=== PATIENT | male | born 1985 | race American Indian/Alaskan Native ===

== ENCOUNTER 2017-10-24 09:59 | Emergency (ER) | payer SELFPAY ==
[2017-10-24 10:09] VITALS: BP 109/81
--- NOTE | 2017-10-24 10:54 | Emergency Department Report ---
ED Rash HPI - HPI Chief Complaint: Skin Rash Stated Complaint: RASH Time Seen by Provider: 10/24/17 10:52 Duration: 3 Days Location: Chest, Back, Abdomen, Upper Extremities, Lower Extremities Rash Symptoms: Yes Itching, No Facial Swelling, No Tongue/Oral Swelling, No Breathing Difficulties, No Choking Sensation, No Wheezing/Dyspnea, No Peeling, No Blistering, No Fever, No Lightheaded, No Malaise, No Myalgias Severity: mild Other History: 32-year-old male past medical history HIV on [place] presents with complaint of 3 days of itchy rash that started on extremities and spread to trunk. Patient is describing small oval shaped lesions which can be itchy on his trunk primarily. Denies fever chills nausea vomiting dysuria or hematuria. Patient states he also came down with cold-like symptoms this week and has been having slight nonproductive cough. States his roommate has a URI. No other complaints. Patient is awake alert and oriented 3. Not in acute distress. Denies any new recent cosmetics pets soaps or foods. Denies any medication or food allergies. ED Review of Systems ROS: Stated complaint: RASH Other details as noted in HPI Constitutional: denies: chills, fever Eyes: denies: eye pain, eye discharge, vision change ENT: denies: ear pain, throat pain Respiratory: denies: cough, shortness of breath, wheezing Cardiovascular: denies: chest pain, palpitations Endocrine: no symptoms reported Gastrointestinal: denies: abdominal pain, nausea, diarrhea Genitourinary: denies: urgency, dysuria Musculoskeletal: denies: back pain, joint swelling, arthralgia Skin: as per HPI, rash, lesions, pruritus Neurological: denies: headache, weakness, paresthesias Psychiatric: denies: anxiety, depression Hematological/Lymphatic: denies: easy bleeding, easy bruising ED Past Medical Hx - Past Medical History Previous Medical History?: Yes Hx HIV: Yes - Social History Smoking Status: Never Smoker - Medications Home Medications: Home Medications Medication Instructions Recorded Confirmed Last Taken Type Hydrocortisone 1% [Hydrocortisone 1 applicatio TP TID PRN #1 tube 10/24/17 Unknown Rx 1% CREAM] Hydroxyzine HCl 25 mg PO TID PRN #30 tablet 10/24/17 Unknown Rx Rash Exam - Exam General: Vital signs noted. No distress. Alert and acting appropriately. HEENT: No Periorbital Edema, No Conjuctival Injection, No Chemosis, No Perioral Edema, No Tongue Edema, No Uvular Edema, No Compromised Airway, No Drooling Lungs: Yes Good Air Exchange (Normal Breath Sounds), No Wheezes, No Ronchi, No Stridor, No Cough, No Labored Respirations, No Retractions, No Use of Accessory Muscles, No Other Abnormal Lung Sounds Heart: Yes Regular, No Murmur Skin: Yes Maculopapular Rash ([place] patch and abdomen with small 1-2 cm salmon shaped slightly elevated HE lesions on trunk and [place] tree and diagonal pattern. No vesicles. No weeping. No cellulitis. No erythema.), No Urticarial Rash, No Morbilliform rash, No Bulla(e), No Excoriations, No Weeping , No Tenderness, No Erythema, No Edema, No Encrustations, No Other Other: Positive: Abdomen Normal, Neurologic Normal, Musculoskeletal Normal ED Course Vital Signs 10/24/17 10:05 Temperature 98.3 F Pulse Rate 71 Respiratory 18 Rate Blood Pressure 109/81 O2 Sat by Pulse 99 Oximetry ED Medical Decision Making - Medical Decision Making A/P: Pityriasis rosea 1-hydroxyzine when necessary, calamine lotion, oatmeal baths 2-patient educated on this condition 3-follow-up with dermatology Critical care attestation.: If time is entered above; I have spent that time in minutes in the direct care of this critically ill patient, excluding procedure time. ED Disposition Clinical Impression: Pityriasis in adult Disposition: DC-01 TO HOME OR SELFCARE Is pt being admited?: No Does the pt Need Aspirin: No Condition: Stable Instructions: Pityriasis rosea (ED) Prescriptions: Hydrocortisone 1% [Hydrocortisone 1% CREAM] 1 applicatio TP TID PRN #1 tube PRN Reason: Itching Hydroxyzine HCl 25 mg PO TID PRN #30 tablet PRN Reason: Itching Referrals: [facility] [Provider Group] - 3-5 Days Forms: Work/School Release Form(ED) Time of Disposition: 10:57
== END 2017-10-24 11:05 | disposition home or self-care (01) ==
LOC: ED 09:59
DX: L21.0 Seborrhea capitis (principal)
CPT/HCPCS: 99282

== ENCOUNTER → 2018-03-24 02:00 | Emergency (ER) | payer SELFPAY | END | disposition left against medical advice (07) | LOC: ED 02:00 | DX: M54.5 Low back pain (principal); Z53.21 Procedure and treatment not carried out due to patient leaving prior to being seen by health care provider ==

== ENCOUNTER 2018-10-19 09:58 | Emergency (ER) | payer OTHER ==
[2018-10-19 10:30] VITALS: BP 132/73
[2018-10-19] MEDS ORDERED: NORCO 5/325 PO ONE (11:51)
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
--- NOTE | 2018-10-19 12:52 | XRay Report ---
LEFT HAND 2 VIEWS: 10/19/18 10:29:00 CLINICAL: Trauma and pain FINDINGS: Normal bones, joints and soft tissues of the hand and wrist. No fracture or dislocation. Distal radius and ulna are normal. IMPRESSION: Normal.
== END 2018-10-19 12:14 | disposition home or self-care (01) ==
LOC: ED 09:58
DX: S63.502A Unspecified sprain of left wrist, initial encounter (principal); M54.5 Low back pain; M79.652 Pain in left thigh; S60.212A Contusion of left wrist, initial encounter; V49.49XA Driver injured in collision with other motor vehicles in traffic accident, initial encounter; Y93.89 Activity, other specified; Y92.410 Unspecified street and highway as the place of occurrence of the external cause; Y99.8 Other external cause status

== ENCOUNTER 2018-10-27 15:28 | Emergency (ER) | payer SELFPAY ==
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
== END 2018-10-27 18:43 ==
LOC: ED 15:28

== ENCOUNTER 2021-09-21 21:11 | Emergency (ER) | payer OTHER, SELFPAY ==
[2021-09-21] MEDS ORDERED: SODIUM CHLORIDE 0.9% 1000 ML IV SOLN IV ONE (22:25)
[2021-09-21] MEDS ORDERED: ACETAMINOPHEN 500 MG TAB PO ONE (22:25)
[2021-09-21] MEDS ORDERED: IBUPROFEN 600 MG TAB PO ONE (22:25)
[2021-09-21] MEDS ORDERED: ONDANSETRON 4 MG/2 ML INJ IV ONE (22:25)
[2021-09-21 23:22] LABS: Hematocrit 40.4 % (35.5-45.6); Hemoglobin 13.2 gm/dl (11.8-15.2); Mean Corpuscular HGB Conc 33 % (32-34); Mean Corpuscular Volume 91 fl (84-94); Platelet Count 188 K/mm3 (140-440); Red Blood Count 4.46 M/mm3 (3.65-5.03); Red Cell Distribution Width 12.1 % (13.2-15.2)
[2021-09-21 23:36] LABS: Bilirubin,Urine NEG (Negative); Blood,Urine NEG (Negative); Color,Urine Yellow (Yellow); RBC,Urine < 1.0 /HPF (0.0-6.0); Urobilinogen,Urine < 2.0 mg/dL (<2.0); WBC,Urine < 1.0 /HPF (0.0-6.0)
[2021-09-21] MEDS ORDERED: AZITHROMYCIN 250 MG TAB PO ONE (23:53)
[2021-09-21] MEDS ORDERED: cefTRIAXone/NS 1 GM/50 ML 1 GM/50 ML BAG IV ONE (23:54)
[2021-09-22 00:49] LABS: Alanine Aminotransferase 40 units/L (7-56); Albumin 3.8 g/dL (3.9-5); BUN/Creatinine Ratio 7; Blood Urea Nitrogen 10 mg/dL (9-20); Calcium 8.3 mg/dL (8.4-10.2); Hemolysis Index 4
[2021-09-22 01:43] LABS: Anisocytosis 1+; Band Neutrophils # (Manual) 0.1 K/mm3; Platelet Estimate Consistent w Auto; Total Cells Counted 100
[2021-09-22 02:49] VITALS: BP 109/62
--- NOTE | 2021-09-22 03:01 | Emergency Department Report ---
- General Chief Complaint: Fever Stated Complaint: FEVER Source: patient Mode of arrival: Ambulatory Limitations: No Limitations - History of Present Illness Initial Comments: Patient is a 35-year-old -I[place] male with a history of HIV who presents to the ED with complaint of acute onset persistent nasal and sinus congestion, frontal sinus pressure, headache, severe diffuse body aches and pains, dry cough, intermittent fever and chills, generalized weakness and fatigue with diarrhea for the last 2 days. Patient states that no one else at home is had similar symptoms. Patient denies abdominal pain, nausea, vomiting, dizziness, syncope, chest pain, shortness of breath, sore throat, dysuria, urinary frequency and urgency, hematemesis, low back pain, hematuria or testicular pain. MD Complaint: fever, cough, rhinorrhea, nasal congestion, sinus pain, other (Diffuse body aches and pains) -: Sudden, days(s) (2) Severity: severe Severity scale (0 -10): 7 Quality: sharp, aching Consistency: constant Improves With: nothing Worsens With: nothing Associated Symptoms: denies other symptoms, fever, chills, myalgias, diaphoresis, headache, rhinorrhea, nasal congestion, cough. denies: sore throat, stiff neck, shortness of breath, abdominal pain, nausea, vomiting, [place] rrhea, dysuria, rash, confusion, right sweats, weight loss, hoarseness, ear pain, other Treatments Prior to Arrival: Acetaminophen - Related Data Previous Rx's Medication Instructions Recorded Last Taken Type Hydrocortisone 1% [Hydrocortisone 1 applicatio TP TID PRN #1 tube 10/24/17 Unknown Rx 1% CREAM] hydrOXYzine HCL [Hydroxyzine HCl] 25 mg PO TID PRN #30 tablet 10/24/17 Unknown Rx HYDROcodone/APAP 5-325 [[place] 1 each PO Q6HR PRN #15 tablet 10/19/18 Unknown Rx 5/325] Acetaminophen [Tylenol] 500 mg PO Q6HR PRN #40 tablet 09/22/21 Unknown Rx Ascorbic Acid [Vitamin C] 1,000 mg PO DAILY #30 tab 09/22/21 Unknown Rx Benzonatate [Tessalon Perles] 100 mg PO Q8HR #30 cap 09/22/21 Unknown Rx Cetirizine HCl [Zyrtec 10mg tab] 10 mg PO DAILY #30 tab 09/22/21 Unknown Rx Doxycycline Hyclate 100 mg PO Q12H #20 cap 09/22/21 Unknown Rx Ondansetron [Zofran Odt] 4 mg PO Q8HR PRN #12 tab.rapdis 09/22/21 Unknown Rx Allergies Allergy/AdvReac Type Severity Reaction Status Date / Time No Known Allergies Allergy Unverified 10/19/18 10:00 ED Review of Systems ROS: Stated complaint: FEVER Other details as noted in HPI Constitutional: chills, fever, malaise Eyes: denies: eye pain, eye discharge, vision change ENT: congestion, other (Frontal sinus pressure). denies: ear pain, throat pain Respiratory: cough. denies: orthopnea, shortness of breath, SOB with exertion, wheezing Cardiovascular: denies: chest pain, palpitations Endocrine: no symptoms reported Gastrointestinal: denies: abdominal pain, nausea, vomiting, diarrhea Genitourinary: denies: urgency, dysuria Musculoskeletal: arthralgia, myalgia. denies: back pain, joint swelling Skin: denies: rash, lesions Neurological: headache. denies: weakness, paresthesias Psychiatric: denies: anxiety, depression Hematological/Lymphatic: denies: easy bleeding, easy bruising ED Past Medical Hx - Past Medical History Previous Medical History?: Yes Hx HIV: Yes - Surgical History Past Surgical History?: No - Social History Smoking Status: Current Every Day Smoker Substance Use Type: None - Medications Home Medications: Home Medications Medication Instructions Recorded Confirmed Last Taken Type Hydrocortisone 1% [Hydrocortisone 1 applicatio TP TID PRN #1 tube 10/24/17 Unknown Rx 1% CREAM] hydrOXYzine HCL [Hydroxyzine HCl] 25 mg PO TID PRN #30 tablet 10/24/17 Unknown Rx HYDROcodone/APAP 5-325 [[place] 1 each PO Q6HR PRN #15 tablet 10/19/18 Unknown Rx 5/325] Acetaminophen [Tylenol] 500 mg PO Q6HR PRN #40 tablet 09/22/21 Unknown Rx Ascorbic Acid [Vitamin C] 1,000 mg PO DAILY #30 tab 09/22/21 Unknown Rx Benzonatate [Tessalon Perles] 100 mg PO Q8HR #30 cap 09/22/21 Unknown Rx Cetirizine HCl [Zyrtec 10mg tab] 10 mg PO DAILY #30 tab 09/22/21 Unknown Rx Doxycycline Hyclate 100 mg PO Q12H #20 cap 09/22/21 Unknown Rx Ondansetron [Zofran Odt] 4 mg PO Q8HR PRN #12 tab.rapdis 09/22/21 Unknown Rx ED Physical Exam - General Limitations: No Limitations General appearance: alert, in no apparent distress - Head Head exam: Present: atraumatic, normocephalic, normal inspection - Eye Eye exam: Present: normal appearance, PERRL, EOMI Pupils: Present: normal accommodation - ENT ENT exam: Present: normal orophraynx, mucous membranes moist, TM's normal bilaterally, normal external ear exam, other (Grossly congested nasal passages; palpable frontal sinus tenderness) - Neck Neck exam: Present: normal inspection, full ROM. Absent: tenderness - Respiratory Respiratory exam: Present: normal lung sounds bilaterally. Absent: respiratory distress, wheezes, rales, rhonchi, stridor, chest wall tenderness, accessory muscle use, decreased breath sounds, other - Cardiovascular Cardiovascular Exam: Present: normal rhythm, tachycardia, normal heart sounds. Absent: systolic murmur, diastolic murmur, rubs, gallop - GI/Abdominal GI/Abdominal exam: Present: soft, normal bowel sounds. Absent: tenderness, guarding, rebound, hyperactive bowel sounds, hypoactive bowel sounds, organo megaly, mass - Extremities Exam Extremities exam: Present: normal inspection, full ROM, normal capillary refill - Back Exam Back exam: Present: normal inspection, full ROM. Absent: tenderness, CVA tenderness (L), muscle spasm, vertebral tenderness - Neurological Exam Neurological exam: Present: alert, oriented X3, CN II-XII intact, normal gait, reflexes normal - Psychiatric Psychiatric exam: Present: normal affect, normal mood, anxious - Skin Skin exam: Present: warm, dry, intact, normal color. Absent: rash ED Course Vital Signs 09/21/21 09/21/21 09/22/21 22:15 23:05 02:38 Temperature 102.7 F H 98.7 F Pulse Rate 140 H 90 Respiratory 22 18 16 Rate Blood Pressure 114/60 Blood Pressure 109/62 [Left] O2 Sat by Pulse 96 98 Oximetry ED Medical Decision Making - Lab Data Result diagrams: 09/21/21 22:56 09/21/21 22:56 - Radiology Data Radiology results: report reviewed, image reviewed Chest x-ray showed no acute cardiopulmonary abnormalities or pneumonitis - Medical Decision Making This is a 35-year-old -[place] male with a history of HIV who presents to the ED with complaint of acute onset persistent nasal and sinus congestion, frontal sinus pressure, headache, severe diffuse body aches and pains, dry cough, intermittent fever and chills, generalized weakness and fatigue with diarrhea for the last 2 days. Patient states that no one else at home is had similar symptoms. In the ED, patient is alert and oriented x3 and is not in distress but febrile and tachycardic in triage. Code sepsis was initiated and the patient was treated initially for fever with Tylenol and ibuprofen, also given 3 L of normal saline IV bolus x1 per sepsis protocol. Lab test results including urinalysis and rapid influenza test results were reviewed and are all nonactionable except for mild hyponatremia 134 mmol/L. Chest x-ray showed no acute cardiopulmonary abnormalities or pneumonitis. Patient was empirically treated with Rocephin 1 g IV x1 and azithromycin 500 mg p.o. x1. On reevaluation, patient's fever resolved with medication, tachycardia also resolv ed, patient's pain also resolved. Patient is hemodynamically stable. Patient was discharged home on medications and advised to follow-up with his primary care physician in 5 to 7 days for reevaluation. Patient was also encouraged to get tested for COVID-19 viral infection given his symptoms at presentation in the ED. Patient is advised return to the ED immediately if symptoms get worse. - Differential Diagnosis COVID-19; pneumonia; URI; viral gastroenteritis; sinusitis; Critical care attestation.: If time is entered above; I have spent that time in minutes in the direct care of this critically ill patient, excluding procedure time. ED Disposition Clinical Impression: Fever and chills, Acute upper respiratory infection, Suspected 2019 novel coronavirus infection, Diarrhea in adult patient Acute bronchitis Qualifiers: Bronchitis organism: other organism Qualified Code(s): J20.8 - Acute bronchitis due to other specified organisms Disposition: HOME / SELF CARE / HOMELESS Is pt being admited?: No Does the pt Need Aspirin: No Condition: Stable Instructions: Acute Bronchitis (ED), Upper Respiratory Infection, Adult, [id number], Cough, Adult, [id number], Acute Bronchitis, Adult, [id number], Diarrhea, Adult, [id number], Fever, Adult, [id number] Additional Instructions: All lab test results were reviewed and are all nonactionable. Chest x-ray sh owed no acute cardiopulmonary abnormalities or pneumonitis. Therefore get a COVID-19 diagnostic tests in any of the outpatient facilities and if positive self quarantine at home for 5 days per CDC recommendations. Otherwise take medications as advised, drink plenty of fluids and follow-up with your primary care physician in 5 to 7 days for reevaluation. Return to the ED immediately if symptoms get worse Prescriptions: Acetaminophen [Tylenol] 500 mg PO Q6HR PRN #40 tablet PRN Reason: Pain or Fever Doxycycline Hyclate 100 mg PO Q12H #20 cap Benzonatate [Tessalon Perles] 100 mg PO Q8HR #30 cap Ascorbic Acid [Vitamin C] 1,000 mg PO DAILY #30 tab Ondansetron [Zofran Odt] 4 mg PO Q8HR PRN #12 tab.rapdis PRN Reason: Nausea Cetirizine HCl [Zyrtec 10mg tab] 10 mg PO DAILY #30 tab Referrals: [facility] [Provider Group] - 7-10 days Forms: Work/School Release Form(ED) Time of Disposition: 03:05 Print Language: BAHAMIAN
--- NOTE | 2021-09-24 10:19 | XRay Report ---
CHEST 2 VIEWS INDICATION / CLINICAL INFORMATION: FEVER, COUGH, DYSPNEA. COMPARISON: None available. FINDINGS: SUPPORT DEVICES: None. HEART / MEDIASTINUM: No significant abnormality. LUNGS / PLEURA: No significant pulmonary or pleural abnormality. No pneumothorax. ADDITIONAL FINDINGS: No significant additional findings. IMPRESSION: 1. No active cardiopulmonary disease. Signer Name: Vikas Ribera II, MD Signed: 09/21/2021 9:59 PM Workstation Name: [id number]
== END 2021-09-22 03:21 | disposition home or self-care (01) ==
LOC: ED 21:11
DX: R50.9 Fever, unspecified (principal); J06.9 Acute upper respiratory infection, unspecified; Z20.822 Contact with and (suspected) exposure to COVID-19; R19.7 Diarrhea, unspecified; J20.8 Acute bronchitis due to other specified organisms; F17.200 Nicotine dependence, unspecified, uncomplicated
CPT/HCPCS: 36415; 71046; 80053; 81001; 82140; 85007; 85025; 87040; 87400; 96365; 96375; 99284; J0696; J2405; J7030; Q0162